=== PATIENT | female | born 1970 | race African-American/Black ===

== ENCOUNTER → 2021-12-10 | Outpatient (CLI) | payer MEDICARE, MEDICAID ==
[2021-12-10 17:45] LABS: BASO % 0.3 % (0.0-1.0); EOS # 0.1 10^3/uL (0.0-0.5); HEMATOCRIT 37.3 % (36.0-47.0); LYMPH # 3.4 10^3/uL (1.5-5.0); MEAN CORPUSCULAR HEMOGLOBIN 31.5 pg (27.0-33.0); MEAN CORPUSCULAR HGB CONC 32.2 g/dl (32.0-36.5); MEAN CORPUSCULAR VOLUME 97.9 fl (80.0-96.0); MONO # 0.4 10^3/uL (0.0-0.8); MONO % 6.6 % (2.0-8.0); NEUTROPHILS # 2.7 10^3/uL (1.5-8.5); PLATELET COUNT, AUTOMATED 250 10^3/uL (150-450); RED BLOOD COUNT 3.81 10^6/uL (4.00-5.40); WHITE BLOOD COUNT 6.7 10^3/uL (4.0-10.0)
[2021-12-10 18:14] LABS: MALB URINE SIEMENS 5.1 MG/L; MAU/CREAT RATIO 2.9 MCG/MG (0.0-30.0)
[2021-12-10 18:15] LABS: ALT/SGPT 21 U/L (12-78); BILIRUBIN,TOTAL 1.1 MG/DL (0.2-1.0); BLOOD UREA NITROGEN 11 MG/DL (7-18); CALCIUM LEVEL 9.7 MG/DL (8.5-10.1); CARBON DIOXIDE LEVEL 33 MEQ/L (21-32); CHLORIDE LEVEL 103 MEQ/L (98-107); CHOLESTEROL LEVEL 255 MG/DL (<200); CHOLESTEROL RISK RATIO 3.148 (<5); CREATININE FOR GFR 0.81 MG/DL (0.55-1.30); FREE T4 0.97 NG/DL (0.76-1.46); GLOMERULAR FILTRATION RATE > 60.0 (>51); GLUCOSE, FASTING 87 MG/DL (70-100); HDL CHOLESTEROL 81 MG/DL (>40); LDL CHOLESTEROL 160 MG/DL (<100); NON-HDL-C 174 MG/DL; POTASSIUM SERUM 4.5 MEQ/L (3.5-5.1); SODIUM LEVEL 139 MEQ/L (136-145); THYROID STIMULATING HORMONE 0.451 uIU/ML (0.358-3.740); TOTAL PROTEIN 7.6 GM/DL (6.4-8.2); TRIGLYCERIDES LEVEL 70 MG/DL (<150)
[2021-12-10 19:07] LABS: HEMOGLOBIN A1c 5.5 %
== END ==
LOC: M PLALAB 15:02
PROVIDERS: ATTEND Physician Assistant
DX: I25.10 Atherosclerotic heart disease of native coronary artery without angina pectoris (principal); I10 Essential (primary) hypertension; Z68.41 Body mass index [BMI] 40.0-44.9, adult

== ENCOUNTER → 2022-01-04 | Outpatient (CLI) | payer MEDICARE, MEDICAID ==
[~2022-01-04] MED LIST: ASPI81CH33 PO; ATOR80TA59 PO; LEVE500T5 PO; LISI10TA22 PO
== END ==
LOC: M RAD 09:32
PROVIDERS: ATTEND Physician Assistant
DX: Z87.891 Personal history of nicotine dependence (principal)